=== PATIENT | male | born 1950 | race Caucasian/White ===

== ENCOUNTER 2017-11-05 05:20 | Emergency (ER) | payer MEDICARE ==
[~2017-11-05] VITALS: Ht 172.7 cm; Wt 86.0 kg
[2017-11-05 05:22] VITALS: BP 159/85; PULSE 87; RESP 20; TEMP 97.9; O2SAT 97
--- NOTE | 2017-11-05 05:59 | PD ---
HPI Chief Complaint: Anxiety Time Seen by Provider: 05:38 Travel History International Travel<30 days: No Contact w/Intl Traveler<30days: No Traveled to known affect area: No History of Present Illness HPI The patient is a 67 year old male who presents to the [facility] emergency department with a history of with a history of anxiety that began this evening shortly after arriving in [place]. He arrived from [place] at 1 AM today. He developed shortness of breath and a sensation of his heart racing. He reports that he has had similar symptoms when he has had panic attacks in the past. He took a Xanax 1 hour ago which has helped. He has long-standing history of anxiety disorder and panic disorder. He has a family history of anxiety in his brother and mother. He has been treated for many years with psychiatric medications for this. He cannot recall the name of all of his medications, however he is on Xanax 1 mg as needed. The patient reports that he was trying to travel quickly to get to the area. He reports that he did not stop regularly to eat. He reports that he last ate earlier in the day and began to feel like his blood sugar may be dropping. He reports that he did eat one honey bun at approximately the same time as he took the Xanax. He reports that since then he has begun to feel improved. On arrival to this facility the patient has a normal heart rate, however his blood pressure is noted to be 159/ 85. The patient denies having any prior history of hypertension. The patient reports that he does drink alcohol on a daily basis, usually between 6-7 beers daily. He denies having any prior history of tremulousness when he did not drink, or seizure activity. He reports that he frequently will stop for a few days at a time. He reports that when he knew he was traveling to [place] he stopped drinking alcohol 2-3 days ago. The patient denies having any chest pain or chest pressure. He denies having any shortness of breath or palpitations currently. On review of systems, he denies having any known recent fevers, cough or congestion, neck pain, abdominal pain, vomiting, diarrhea, urinary symptoms, or neurologic symptoms. PFS Past Medical History Narrative Medical The patient's past medical history is significant for throat cancer 6 years ago , anxiety and panic disorder, pneumonia last year, and GERD. Anxiety: Yes Depression: Yes Diminished Hearing: No GERD: Yes Insomnia: Yes Tetanus Vaccination: < 5 Years Influenza Vaccination: No Past Surgical History Narrative Surgical The patient's past surgical history is significant for throat ca resection and radiation treatment- 6 years ago. Tonsillectomy: Yes Other Surgery: Yes (Throat surgery x2) Social History Alcohol Use: Yes (6-7 beers daily. ) Tobacco Use: No Substance Use: No Allergies-Medications (Allergen,Severity, Reaction): Coded Allergies: No Known Drug Allergies (Verified Allergy, Unknown, 11/05/17) Narrative Medication xanax. Review of Systems Except as stated in HPI: all other systems reviewed are Neg General / Constitutional: No: Fever Eyes: No: Visual changes HENT: No: Headaches Cardiovascular: Positive: Palpitations, No: Chest Pain or Discomfort Respiratory: Positive: Shortness of Breath Gastrointestinal: No: Nausea, Vomiting, Diarrhea, Abdominal Pain Genitourinary: No: Dysuria Musculoskeletal: No: Pain Skin: No Rash Neurologic: No: Weakness, Focal Abnormalities, Change in Mentation, Slurred Speech, Sensory Disturbance Psychiatric: No: Depression Endocrine: No: Polydipsia Hematologic/Lymphatic: No: Easy Bruising Physical Exam Narrative General: The patient is a well-developed well-nourished male in no acute distress. Head and Neck exam: Head is normocephalic atraumatic. Eyes: EOMI, pupils are equal round and reactive to light. Nose: Midline septum with pink mucous membranes Mouth: Dentition unremarkable. Moist mucus membranes. Posterior oropharynx is not erythematous. No tonsillar hypertrophy. Uvula midline. Airway patent. Neck: No palpable lymphadenopathy. No nuchal rigidity. No thyromegaly. Cardiovascular: Regular rate and rhythm without murmurs, gallops, or rubs. No pulse deficit to the extremities on simultaneous auscultation and palpation of his radial artery. Lungs: Clear to auscultation bilaterally. No wheezes, rhonchi, or rales. Abdomen: Soft, without tenderness to palpation in all 4 quadrants of the abdomen. No guarding, rebound, or rigidity. Normal bowel sounds are audible. No tenderness on palpation of McBurney's point. Extremities: No clubbing, cyanosis, or edema. 2+ pulses in all 4 extremities. No calf tenderness on palpation. Negative Homans sign. No palpable cords. Back: No costovertebral angle tenderness to palpation. Neurologic Exam: Grossly nonfocal Skin Exam: No rash noted. Intact skin that is warm and dry. Data Data Last Documented VS Vital Signs Date Time Temp Pulse Resp B/P (MAP) Pulse Ox O2 Delivery O2 Flow Rate FiO2 11/05/17 07:09 11/05/17 07:00 81 14 98 Room Air 11/05/17 05:22 97.9 Orders Orders Electrocardiogram (11/05/17 05:59) Ed Discharge Order (11/05/17 06:56) [facility] Medical Decision Making Medical Screen Exam Complete: Yes Emergency Medical Condition: Yes Medical Record Reviewed: Yes Differential Diagnosis Panic attack, versus cardiac arrhythmia, versus pulmonary embolism, versus alcohol withdrawal syndrome Narrative Course During the course of the patient's emergency department visit, the patient's history, examination, and differential diagnosis were reviewed with the patient. The patient was placed on a remote broadcast technician with oximetry and frequent blood pressure monitoring. The patient had an EKG done on arrival. The patient' s EKG reveals a sinus rhythm heart rate of 82, QRS duration is 95 ms, QTc [address] segment elevation or depression, T waves are inverted in V1. The patient's well's score for PE and DVT is low probability. The patient on examination has no signs of alcohol withdrawal. The patient's EKG shows no evidence of cardiac arrhythmia, however or paroxysmal arrhythmia would still be in the differential however at this time the patient's symptoms are most consistent with, panic attack. The patient has decades of history of panic attack disorder and anxiety disorder. The patient reports that the symptoms are consistent with this. Since the patient has eaten and taken his Xanax which he takes as needed for panic attacks, the patient reports feeling improved. The patient will be maintained on the remote broadcast technician. The patient will be observed for any recurrence of symptoms. The patient was offered food and drink, however he reports that he is full currently and asymptomatic. The patient is resting comfortably and feels better, is alert and in no distress. The patient's results and examination findings were discussed with the patient. The repeat examination is unremarkable and benign. The history, exam, diagnostic testing, and current condition do not suggest any significant pathology to warrant further testing, continued ED treatment, admission, or surgical evaluation at this point. The vital signs have been stable. The patient does not have uncontrollable pain, intractable vomiting, or other significant symptoms. The patient's condition is stable and appropriate for discharge. The patient will pursue further outpatient evaluation with a primary care physician or other designated or consulting physician as indicated in the discharge instructions. The patient expressed understanding and was agreeable with this plan. Diagnosis Primary Impression: Panic attack Referrals: Primary Care Physician as needed Patient Instructions: General Instructions, Panic Attack (ED) Med/Other Pt SpecificInfo: No Change to Meds Disposition: 01 DISCHARGE HOME Condition: Stable Ita Noonan MD Nov 05, 2017 05:59
[2017-11-05 07:00] VITALS: BP 140/62; PULSE 81; RESP 14; O2SAT 98
--- NOTE | 2017-11-05 18:25 | EKG ---
Date Performed: 11/05/2017 Time Performed: 06:05:37 PTAGE: 67 years EKG: Sinus rhythm NORMAL ECG NO PREVIOUS TRACING DOCTOR: Fatmata Mccrary Interpretating Date/Time 11/05/2017 18:20:44
== END 2017-11-05 07:10 | disposition home or self-care (01) ==
LOC: NEPE 05:20
DX: F41.0 Panic disorder [episodic paroxysmal anxiety] (principal)
CPT/HCPCS: 93005; 99283